=== PATIENT | female | born 1990 | race Caucasian/White ===

== ENCOUNTER 2024-12-08 19:04 | Emergency (ER) | payer OTHER, SELFPAY ==
[2024-12-08 19:14] VITALS: BP 137/92; PULSE 59; TEMP 36.8; O2SAT 99; BMI 29.3
--- NOTE | 2024-12-08 19:25 | ED.GENADUL1 ---
HPI HPI - General Adult General Chief complaint: Seizure Stated complaint: SEIZURES Time Seen by Provider: 12/08/24 19:25 Source: patient and family Mode of arrival: walk-in Limitations: no limitations History of Present Illness HPI narrative: past history of anxiety and PCOS. States she had a seizure last week, last night and again today. once in the car enroute to the hospital and one when checking in at registration. states she tensed up last PM and did shake for a minute or two and once she stop shaking she could talk to him but was breathing hard. Nursing went and got her out of the lobby and wheeled her back to her room on the stretcher and she is AxOx3. she states her body feels stiff and she has some numbness around her mouth. States she uses relaxation techniques for her anxiety to include chewing gum. she is on no medication she is not aware of any injury from her seizure in the lobby. Did have chest pain earlier but not now. States body feels stiff Related Data Home Medications ?Medication ?Instructions ?Recorded ?Confirmed No Known Home Medications 12/08/24 12/08/24 Allergies Allergy/AdvReac Type Severity Reaction Status Date / Time No Known Drug Allergies Allergy Verified 12/08/24 19:13 Opioid HPI Opioid Management Most Recent Opioid Data: Ur Phencyclidine Scrn, (NEGATIVE) Negative Today, 21:05 Review of Systems ROS Status of ROS 10 or more systems reviewed and unremarkable except as noted in history and below PFSH PFSH Social History Little interest or pleasure in doing things: not at all Feeling down, depressed, or hopeless: not at all Exam Constitutional Vital Signs, click to edit/add: Last Vital Signs Temp 98.3 F 12/08/24 19:14 Pulse 59 L 12/08/24 19:14 Resp 21 H 12/08/24 19:14 BP 137/92 H 12/08/24 19:14 Pulse Ox 99 12/08/24 19:14 O2 Del Method Room Air 12/08/24 19:14 Common normals: no apparent distress, average body habitus, oriented x3, no limitations, healthy appearing, alert and well nourished [facility] Common normals: normocephalic and head/scalp atraumatic Eye Common normals: EOMs intact bilaterally and conjunctivae normal Respiratory Common normals: normal respiratory effort, no retractions, no use of accessory muscles and clear to auscultation bilaterally Cardio Common normals: regular rate, regular rhythm, S1 normal heart sound and S2 normal heart sound Extremity Common normals: normal to inspection and full ROM Neuro Common normals: oriented x3, CN's II-XII intact bilaterally, moves all extremities, no focal motor deficits and no sensory deficits noted Psych Appearance: grossly normal Course Vital Signs Vital signs: Vital Signs Temperature 98.3 F 12/08/24 19:14 Pulse Rate 59 L 12/08/24 19:14 Respiratory Rate 21 H 12/08/24 19:14 Blood Pressure 137/92 H 12/08/24 19:14 Pulse Oximetry 99 12/08/24 19:14 Oxygen Delivery Method Room Air 12/08/24 19:14 Temperature 98.3 F 12/08/24 19:14 Pulse Rate 59 L 12/08/24 19:14 Respiratory Rate 21 H 12/08/24 19:14 Blood Pressure 137/92 H 12/08/24 19:14 Pulse Oximetry 99 12/08/24 19:14 Oxygen Delivery Method Room Air 12/08/24 19:14 Medical Decision Making MDM Narrative Medical decision making narrative: patient presents complaining of recurrent seizures. atypical seizures. Per her she does tense up and shake for a couple of minutes but then she will communicate to him why she is still breathing hard. Had one seizure lat week. One last night and 2 today. Known history of anxiety that she treats with relaxation technigues and also chewing gum. She did have a seizure in the lobby at registration and by the time nursing brought her back to her room she was able to have a conversation but her extremities were rigid and she has some circumoral numbness. CT brain and C-spine neg. Patient given benadryl to help her relax and is now asymptomatic. CMP, CBC WNL and UA pending. 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 patient and her advised of the diagnosis and advised to follow up with her doctor for treatment Lab Data Labs: Lab Results 12/08/24 12/08/24 Range/Units 19:30 21:05 WBC 10.7 (4.0-11.0) 10^3/uL RBC 4.45 (4.20-5.40) 10^6/uL Hgb 14.3 (12.0-16.0) g/dL Hct 40.2 (36.0-48.0) % MCV 90.3 (81.0-99.0) fL MCH 32.1 (26.7-34.0) pg MCHC 35.6 H (29.9-35.2) g/dL RDW 11.9 (11.0-15.0) % Plt Count 196 (150-450) 10^3/uL MPV 10.2 (9.5-13.5) fL Neut % (Auto) 44.0 (43.0-75.0) % Lymph % (Auto) 44.4 (20.5-60.0) % Barton % (Auto) 8.2 (1.7-12.0) % Eos % (Auto) 2.3 (0.9-7.0) % Baso % (Auto) 0.4 (0.2-2.0) % Neut # (Auto) 4.7 (1.4-6.5) 10^3/uL Lymph # (Auto) 4.8 H (1.2-3.8) 10^3/uL Barton # (Auto) 0.9 H (0.3-0.8) 10^3/uL Eos # (Auto) 0.3 (0.0-0.7) 10^3/uL Baso # (Auto) 0.0 (0.0-0.1) 10^3/uL Abs Immat Gran (auto) 0.07 H (0.00-0.03) 10^3/uL Imm/Tot Granulo (auto) 0.7 H (0.0-0.5) % Sodium 136 (136-145) mmol/L Potassium 3.4 L (3.5-5.1) mmol/L Chloride 101 (98-107) mmol/L Carbon Dioxide 22.1 (21.0-32.0) mmol/L Anion Gap 16.3 BUN 8.0 (7.0-18.0) mg/dL Creatinine 0.70 (0.55-1.02) mg/dL Est GFR ( Amer) >60 (>=60 mL/min/1.73m^2) Est GFR (Non-Af Amer) >60 (>=60 mL/min/1.73m^2) BUN/Creatinine Ratio 11.4 Glucose 94 (74-106) mg/dL Lactate 1.6 (0.4-2.0) mmol/L Calcium 8.6 (8.5-10.1) mg/dL Total Bilirubin 0.8 (0.2-1.0) mg/dL AST 31 (15-37) U/L ALT 61 H (14-59) U/L Alkaline Phosphatase 76 (46-116) U/L Troponin I High Sens 4.0 (4.0-51.3) pg/mL Total Protein 7.6 (6.4-8.2) g/dL Albumin 4.0 (3.4-5.0) g/dL Globulin 3.6 g/dL Albumin/Globulin Ratio 1.1 Urine Color Lt. yellow (YELLOW) Urine Clarity Clear (CLEAR) Urine pH 7.5 (5.0-9.0) Ur Specific [place] 1.010 (1.005-1.025) Urine Protein Negative (NEG/TRACE) mg/dL Urine Glucose (UA) Negative (NEGATIVE) mg/dL Urine Ketones Negative (NEGATIVE) mg/dL Urine Occult Blood Moderate A (NEGATIVE) Urine Nitrite Negative (NEGATIVE) Urine Bilirubin Negative (NEGATIVE) Urine Urobilinogen 0.2 (0.2-1.0) EU/dL Ur Leukocyte Esterase Negative (NEGATIVE) Urine RBC 5-10 A (0-2) #/HPF Urine WBC 0-2 A (NONE SEEN) #/HPF Ur Squamous Epith Cells Rare (NONE/RARE) #/LPF Urine Crystals None seen (None Seen) #/HPF Urine Bacteria Trace A (NONE SEEN) #/HPF Urine Casts None seen (NONE SEEN) #/LPF Urine Mucus None seen (NONE SEEN) Urine Opiates Screen Negative (NEGATIVE) Ur Buprenorphine Scrn Negative (NEGATIVE) Ur Oxycodone Screen Negative (NEGATIVE) Urine Methadone Screen Negative (NEGATIVE) Ur Barbiturates Screen Negative (NEGATIVE) U Tricyclic Antidepress Negative (NEGATIVE) Ur Phencyclidine Scrn Negative (NEGATIVE) Ur Amphetamines Screen Negative (NEGATIVE) U Methamphetamines Scrn Negative (NEGATIVE) U Benzodiazepines Scrn Negative (NEGATIVE) Urine Cocaine Screen Negative (NEGATIVE) U Cannabinoids Screen Positive A (NEGATIVE) Discharge Plan Discharge Chief Complaint: Seizure Clinical Impression: Anxiety, Seizure Patient Disposition: Home, Self-Care Prescriptions / Home Meds: No Action No Known Home Medications Print Language: Citizen Of [place] Instructions: Nonepileptic Seizures (ED), Anxiety (ED) Additional Instructions: follow up with your doctor this week for recheck Referrals: [facility] [Primary Care Provider] - 1 week
--- NOTE | 2024-12-08 19:32 | ECG_ITS ---
[facility] Test Date: 2024-12-08 Pat Name: Coco Solis Department: Room: - Gender: Female Power [employer]: : 1990 Requested By: [id number] Order Number: [id number] Reading MD: NEERAJ QUIGLEY M.D. Measurements Intervals [place] Rate: 56 P: 26 OR: 174 QRS: 70 QRSD: 82 T: 74 QT: 428 QTc: 418 Interpretive Statements 1100 Sinus rhythm 9110 normal ECG No previous ECG available for comparison Electronically Signed On 12-08-2024 20:02:12 EDT by NEERAJ QUIGLEY M.D.
--- NOTE | 2024-12-08 19:32 | XR_ITS ---
The [place] [id number] Patient Name: HARI GONZALES MRN: [id number] date: 1990 Sex: F Assigned Patient Location: ER Current Patient Location: ER Accession/Order Number: [id number] Exam Date: 12/08/2024 19:58 Report Date: 12/08/2024 20:14 At the request of: RUDY MANDUJANO MD Procedure: XR chest 1V Plain film chest Single view HISTORY: Seizure. COMPARISON: None FINDINGS: SUPPORT DEVICES: None POSTSURGICAL CHANGES: None HEART: Within normal limits PULMONARY BENNIE: Within normal limits MEDIASTINUM: Unremarkable LUNGS AND PLEURA: No acute lung process, pleural effusion or pneumothorax identified. BONY STRUCTURES: Intact ADDITIONAL FINDINGS None XR/XR chest 1V IMPRESSION: No acute process. Impression dictated by: Dane Waite M.D. 12/08/2024 8:14 PM Dictation Location: [place] [address] Electronically authenticated by: [id number] Y Date: 12/08/2024 20:14
--- NOTE | 2024-12-08 19:32 | CT_ITS ---
[address] [address] Patient Name: HARI GONZALES MRN: [id number] date: 1990 Sex: F Assigned Patient Location: ER Current Patient Location: ER Accession/Order Number: [id number] Exam Date: 12/08/2024 19:58 Report Date: 12/08/2024 20:13 At the request of: RUDY MANDUJANO MD Procedure: CT head/brain wo con Unenhanced head CT TECHNIQUE: Contiguous axial imaging of the head. The CT exam was performed using one or more the following dose reduction techniques: Automated exposure control, adjustment of the MA and/or Kv according to patient size, or use of the iterative reconstruction technique. COMPARISON: None HISTORY: Seizure. Facial injury VENTRICLES: Within normal limits ATROPHY: None BRAIN PARENCHYMA: Adequate stewart-white matter differentiation identified. HEMORRHAGE: None HERNIATION: No mass effect or herniation INFARCTION: No recent vascular distribution infarction is seen. EXTRA-AXIAL FLUID COLLECTIONS None MIDBRAIN: Unremarkable LIDIA: Unremarkable MEDULLA: Unremarkable SINUSES: Unremarkable ORBITS: Grossly unremarkable MASTOIDS: Unremarkable BONY STRUCTURES Intact ADDITIONAL FINDINGS: CT/CT head/brain wo con IMPRESSION: No acute findings. Impression dictated by: Dane Waite M.D. 12/08/2024 8:13 PM Dictation Location[facility] Electronically authenticated by: [id number] Y Date: 12/08/2024 20:13
--- NOTE | 2024-12-08 19:32 | CT_ITS ---
The [address] [address] Patient Name: HARI GONZALES MRN: [id number] date: 1990 Sex: F Assigned Patient Location: ER Current Patient Location: ER Accession/Order Number: [id number] Exam Date: 12/08/2024 19:58 Report Date: 12/08/2024 20:53 At the request of: RUDY MANDUJANO MD Procedure: CT cervical spine wo con CT Cervical Spine withoutcontrast TECHNIQUE: Axial imaging with 2-D and 3-D reconstruction. The CT exam was performed using one or more the following dose reduction techniques: Automated exposure control, adjustment of the MA and/or Kv according to patient size, or use of the iterative reconstruction technique. COMPARISON: None HISTORY: Seizure POST SURGERY CHANGES: None BONY ALIGNMENT: Adequate BONY SPINAL CANAL: Patent central bony canal FRACTURE: None BONY LESIONS: None SOFT TISSUES: Unremarkable DEGENERATIVE CHANGES: None LUNG APICES: Unremarkable ADDITIONAL FINDINGS: CT/CT cervical spine wo con IMPRESSION: No acute process Impression dictated by: Dane Waite M.D. 12/08/2024 8:53 PM Dictation Location: [place] [address] Electronically authenticated by: [id number] Y Date: 12/08/2024 20:53
[2024-12-08] MEDS: DIPHENHYDRAMINE HCL 50 MG/ML VIAL IVP (20:13)
[2024-12-08] MEDS: 0.9 % SODIUM CHLORIDE 1,000 ML 999 ML IV (20:13)
[2024-12-08 20:17] LABS: Hematocrit 40.2 % (36.0-48.0); Hemoglobin 14.3 g/dL (12.0-16.0); Immature Granulocytes Abs Auto 0.07 10^3/uL (0.00-0.03); Immature Granulocytes Pct Auto 0.7 % (0.0-0.5); Lymphocytes Absolute Auto 4.8 10^3/uL (1.2-3.8); Mean Corpuscular HGB Conc 35.6 g/dL (29.9-35.2); Mean Corpuscular Hemoglobin 32.1 pg (26.7-34.0); Mean Corpuscular Volume 90.3 fL (81.0-99.0); Platelet Count 196 10^3/uL (150-450); Red Blood Count 4.45 10^6/uL (4.20-5.40); White Blood Count 10.7 10^3/uL (4.0-11.0)
[2024-12-08 20:45] LABS: Lactate/Lactic Acid 1.6 mmol/L (0.4-2.0)
[2024-12-08 20:59] LABS: Alanine Aminotransferase 61 U/L (14-59); Albumin Globulin Ratio 1.1; Albumin Level 4.0 g/dL (3.4-5.0); Alkaline Phosphatase 76 U/L (46-116); Anion Gap 16.3; Aspartate Amino Transferase 31 U/L (15-37); Blood Urea Nitrogen 8.0 mg/dL (7.0-18.0); Calcium 8.6 mg/dL (8.5-10.1); Carbon Dioxide 22.1 mmol/L (21.0-32.0); Chloride 101 mmol/L (98-107); Estimated GFR (African America >60 (>=60 mL/min/1.73m^2); Estimated GFR (Non-African Ame >60 (>=60 mL/min/1.73m^2); Globulin 3.6 g/dL; Glucose 94 mg/dL (74-106); Potassium 3.4 mmol/L (3.5-5.1); Sodium 136 mmol/L (136-145); Total Protein 7.6 g/dL (6.4-8.2)
[2024-12-08 21:41] LABS: Glucose Urine UA NEGATIVE (NEGATIVE)
[2024-12-08 21:53] LABS: Cast Seen? NONE SEEN #/LPF (NONE SEEN); Crystals Seen? None Seen #/HPF (None Seen)
[2024-12-08 21:54] LABS: Cannabinoid Screen Urine POSITIVE (NEGATIVE); Methamphetamines Screen Urine NEGATIVE (NEGATIVE); Tricyclic Antidepressant Urine NEGATIVE (NEGATIVE)
== END 2024-12-08 23:02 | disposition home or self-care (01) ==
PROVIDERS: Emergency Provider Internal Medicine
DX: R56.9 Unspecified convulsions (principal); F41.9 Anxiety disorder, unspecified; E28.2 Polycystic ovarian syndrome
CPT/HCPCS: 36415; 70450; 71045; 72125; 76376; 80053; 80307; 81001; 83605; 84484; 85025; 93005; 96374; 99285; J1200